=== PATIENT | female | born 1985 | race African-American/Black ===

== ENCOUNTER 2019-04-25 03:38 | Emergency (ER) | payer MEDICAID ==
[~2019-04-25] VITALS: Ht 167.6 cm; Wt 80.0 kg
[2019-04-25] MEDS ORDERED: LORazepam 2 mg/ml vial IM ONE (03:45)
[2019-04-25] MEDS ORDERED: haloperidol lactate 5mg/ml inj IM ONE (03:45)
--- NOTE | 2019-04-25 04:18 | NUR ---
EXPLAINED TO PT ABOUT MEDICATION ORDERS, PT COOPERATIVE TO ATIVAN AND HALDOL WITH NO AGGRESIVE BEHAVIOR. PT GOES THROUGH EPISODES OF A&OX4 AND ABLE TO HAVE FULL CONVERSATIONS, AND THEN THROUGH EPISODES OF A&OX1 TO PERSON AND IS SLURRING SPEECH. PT STATES SHE "DID DRUGS, THEN HAD SEX, THEN WALKED OUT DOOR AND EVEYTHING WAS NOT RIGHT." PT ADMITTED TO DOING METH AND DRINKING BEER TONIGHT. TRIED TO EXPLAIN TO PT THE PLAN OF CARE AND PT THEN STATED "DON'T TELL ME, JUST PUT ME OUT I DON'T WANT TO FEEL IT".
[2019-04-25 04:34] LABS: BASOPHILS # (AUTO) 0.1 X10'3 (0-0.2); BASOPHILS % (AUTO) 0.5 % (0-1); EOSINOPHILS # (AUTO) 0.3 X10'3 (0-0.9); EOSINOPHILS % (AUTO) 3.1 % (0-6); HEMATOCRIT 36.4 % (35.0-45.0); HEMOGLOBIN 11.8 g/dl (12.0-16.0); LYMPHOCYTES # (AUTO) 1.4 X10'3 (1.1-4.8); LYMPHOCYTES % (AUTO) 14.2 % (21-51); MEAN CORPUSCULAR HEMOGLOBIN 26.1 PG (27.0-31.0); MEAN CORPUSCULAR HGB CONC 32.5 g/dL (33.0-36.5); MEAN CORPUSCULAR VOLUME 80.3 FL (78-98); MEAN PLATELET VOLUME 8.2 FL (7.4-10.4); MONOCYTES # (AUTO) 0.7 X10'3 (0-0.9); MONOCYTES % (AUTO) 6.8 % (2-12); NEUTROPHILS # (AUTO) 7.6 X10'3 (1.8-7.7); NEUTROPHILS % (AUTO) 75.4 % (42-75); PLATELET COUNT 276 X10'3 (140-440); RED BLOOD COUNT 4.53 X10'6 (4.20-5.60); RED CELL DISTRIBUTION WIDTH 13.9 % (11.5-14.5); WHITE BLOOD COUNT 10.1 X10'3 (4.5-11.0)
[2019-04-25 04:59] LABS: ALANINE AMINOTRANSFERASE 28 U/L (12-78); ALBUMIN 3.6 G/DL (3.4-5.0); ALBUMIN/GLOBULIN RATIO 0.9 (1.1-1.5); ALKALINE PHOSPHATASE 60 IU/L (46-116); ANION GAP 21 (8-16); ASPARTATE AMINO TRANSFERASE 31 U/L (10-37); BILIRUBIN,TOTAL 0.3 MG/DL (0.1-1.0); BLOOD UREA NITROGEN 10 MG/DL (7-18); BUN/CREATININE RATIO 6.7 (6.6-38.0); CHLORIDE 103 MMOL/L (99-107); ETHANOL < 0.010 GM/DL (0.0-0.010); GLUCOSE 156 MG/DL (70-104); SODIUM 140 MMOL/L (135-145); TOTAL CARBON DIOXIDE 15.8 MMOL/L (24-32); TOTAL PROTEIN 7.7 G/DL (6.4-8.2); eGFR 49 ML/MIN
[2019-04-25 05:01] LABS: ACETAMINOPHEN < 2.0 UG/ML (10-30); POTASSIUM 2.7 MMOL/L (3.5-5.1)
[2019-04-25] MEDS ORDERED: potassium 10mEq/100ml NS w/LIDOcaine (10mg/bag) IV SCH (05:05)
[2019-04-25] MEDS ORDERED: normal saline 1000ML IV soln IVB ONE ×2 (05:05→05:55)
[2019-04-25 05:09] LABS: CLARITY,URINE CLEAR (Clear); COLOR,URINE YELLOW (Yellow); GLUCOSE, URINE NEGATIVE (Neg); KETONES,URINE 15 mg/dl (Neg); LEUKOCYTE ESTERASE ,URINE NEGATIVE (Neg); NITRITES, URINE NEGATIVE (Neg); OCCULT BLOOD,URINE TRACE-INTACT (Neg); PH,URINE 5.5 (4.8-8.0); PROTEIN,URINE NEGATIVE (Neg); URINE HCG POSITIVE (NEG); UROBILINOGEN,URINE 0.2 E.U/dL (0.2-1.0)
[2019-04-25] MEDS: potassium CL 10mEq/100ml bag 100 ML IV SCH ×2 (05:12→06:25)
[2019-04-25] MEDS: potassium Cl 20 mEq SR tablet PO ONE ×2 (05:12→05:19)
[2019-04-25 05:17] LABS: UA COLLECTION TYPE NON-SPECIFIED
[2019-04-25 05:18] LABS: BACTERIA,URINE 1+ /HPF (Neg); MUCUS STRANDS FEW /LPF (Neg); RBC,URINE 0-2 /HPF (0-2); SQUAMOUS EPITHELIAL CELL,UR MANY /LPF (FEW); WBC,URINE NONE SEEN /HPF (0-4)
[2019-04-25 05:22] LABS: URINE AMPHETAMINE SCREEN POSITIVE (Neg); URINE BARBITUATE SCREEN NEGATIVE (Neg); URINE BENZODIAZEPINES SCREEN NEGATIVE (Neg); URINE CANNABINOID SCREEN NEGATIVE (Neg); URINE COCAINE SCREEN NEGATIVE (Neg); URINE METHADONE SCREEN NEGATIVE (Neg); URINE OPIATE SCREEN NEGATIVE (Neg); URINE PHENCYCLIDINE SCREEN NEGATIVE (Neg)
--- NOTE | 2019-04-25 06:17 | NUR ---
PT IS CURRENTLY SLEEPING. VSS.
[2019-04-25 07:56] VITALS: BP 88/45
[2019-04-25 09:07] LABS: ANION GAP 12 (8-16); BLOOD UREA NITROGEN 8 MG/DL (7-18); BUN/CREATININE RATIO 8.5 (6.6-38.0); CALCIUM 7.7 MG/DL (8.5-10.1); CHLORIDE 109 MMOL/L (99-107); CREATININE 0.94 MG/DL (0.40-0.90); GLUCOSE 110 MG/DL (70-104); POTASSIUM 3.8 MMOL/L (3.5-5.1); SODIUM 142 MMOL/L (135-145); TOTAL CARBON DIOXIDE 20.6 MMOL/L (24-32); eGFR 84 ML/MIN
--- NOTE | 2019-04-25 10:12 | NUR ---
called [facility] and pt was accepted as a pt. called a taxi for the patient. pt given proper paperwork for [facility]
== END 2019-04-25 10:14 | disposition home or self-care (01) ==
LOC: ER 03:38
DX: F15.10 Other stimulant abuse, uncomplicated (principal); E86.0 Dehydration; F29 Unspecified psychosis not due to a substance or known physiological condition; F12.90 Cannabis use, unspecified, uncomplicated
CPT/HCPCS: 36415; 80048; 80053; 80305; 80320; 80329; 81001; 81025; 84443; 84702; 85025; 96360; 96361; 96372; 99283; J1630; J2060; J3480; J7030

== ENCOUNTER 2019-05-02 22:46 | Emergency (ER) | payer MEDICAID ==
[~2019-05-02] VITALS: Ht 177.8 cm; Wt 93.6 kg
--- NOTE | 2019-05-02 23:12 | NUR ---
pt awaiting room. give cup of ice water and vasaline for her lips. Pt states "can you give me some medicinie for my headache". I told her when the md sees here they will decided about medication. She states "because i dont want to be admitted...i don't want to take up everyones time".
--- NOTE | 2019-05-03 00:12 | NUR ---
PT REFUSED LAB DRAW. WILL CONTINUE TO MONITOR.
[2019-05-03] MEDS ORDERED: acetaminophen 325mg tablet PO ONE (00:15)
--- NOTE | 2019-05-03 00:46 | NUR ---
ATTEMPTED TO OBTAIN URINE SAMPLE. PT REFUSED AND STATED "I'M JUST TRYING TO SLEEP. I CAN TRY MAYBE LATER. I JUST SHOWERED."
--- NOTE | 2019-05-03 00:59 | NUR ---
WENT TO CHECK ON PT, PT NAKED IN BED WITH SHEET OVER HEAD MUTTERING TO SELF. WHEN ATTEMPTED TO TALK WITH PT SHE STATES, "HELL NO. GO AWAY."
[2019-05-03 01:18] VITALS: BP 107/67
== END 2019-05-03 01:48 | disposition home or self-care (01) ==
LOC: ER 22:46
DX: R51 Headache (principal); F60.0 Paranoid personality disorder; J45.909 Unspecified asthma, uncomplicated; F29 Unspecified psychosis not due to a substance or known physiological condition; F20.9 Schizophrenia, unspecified; F12.90 Cannabis use, unspecified, uncomplicated; F15.90 Other stimulant use, unspecified, uncomplicated; Z98.890 Other specified postprocedural states
CPT/HCPCS: 99283

== ENCOUNTER 2019-05-18 15:05 | Emergency (ER) | payer MEDICAID ==
[~2019-05-18] VITALS: Ht 177.8 cm; Wt 104.5 kg
[2019-05-18 16:20] VITALS: BP 131/79
== END 2019-05-18 18:26 | disposition home or self-care (01) ==
LOC: ER 15:05
DX: F07.81 Postconcussional syndrome (principal); F12.90 Cannabis use, unspecified, uncomplicated; F15.90 Other stimulant use, unspecified, uncomplicated; J45.909 Unspecified asthma, uncomplicated; F20.9 Schizophrenia, unspecified
CPT/HCPCS: 99283

== ENCOUNTER 2019-06-26 18:41 | Emergency (ER) | payer MEDICAID ==
[~2019-06-26] VITALS: Ht 167.6 cm; Wt 90.9 kg
--- NOTE | 2019-06-26 18:55 | NUR ---
Patient requests that I, "feel how hot I am," and points toward her vagina. I told the patient that I would not be doing that and then she looked at me with disgust and told me that, "You're racist!"
[2019-06-26 19:10] LABS: BASOPHILS # (AUTO) 0.1 X10'3 (0-0.2); BASOPHILS % (AUTO) 0.6 % (0-1); EOSINOPHILS # (AUTO) 0.1 X10'3 (0-0.9); EOSINOPHILS % (AUTO) 1.2 % (0-6); HEMATOCRIT 43.8 % (35.0-45.0); HEMOGLOBIN 14.2 g/dl (12.0-16.0); LYMPHOCYTES # (AUTO) 1.3 X10'3 (1.1-4.8); LYMPHOCYTES % (AUTO) 10.9 % (21-51); MEAN CORPUSCULAR HEMOGLOBIN 26.4 PG (27.0-31.0); MEAN CORPUSCULAR HGB CONC 32.3 g/dL (33.0-36.5); MEAN CORPUSCULAR VOLUME 81.6 FL (78-98); MEAN PLATELET VOLUME 8.9 FL (7.4-10.4); MONOCYTES # (AUTO) 0.3 X10'3 (0-0.9); MONOCYTES % (AUTO) 2.5 % (2-12); NEUTROPHILS # (AUTO) 10.3 X10'3 (1.8-7.7); NEUTROPHILS % (AUTO) 84.8 % (42-75); PLATELET COUNT 305 X10'3 (140-440); RED BLOOD COUNT 5.36 X10'6 (4.20-5.60); WHITE BLOOD COUNT 12.1 X10'3 (4.5-11.0)
--- NOTE | 2019-06-26 19:18 | NUR ---
Patient continues to refuse to attempt to urinate stating, "I don't have any urine! [facility]
--- NOTE | 2019-06-26 19:24 | NUR ---
With MARK Carmen straight cath done.
[2019-06-26 19:26] LABS: ALANINE AMINOTRANSFERASE 17 U/L (12-78); ALBUMIN 4.1 G/DL (3.4-5.0); ALKALINE PHOSPHATASE 66 IU/L (46-116); ANION GAP 14 (8-16); ASPARTATE AMINO TRANSFERASE 16 U/L (10-37); BILIRUBIN,TOTAL 0.5 MG/DL (0.1-1.0); BLOOD UREA NITROGEN 10 MG/DL (7-18); BUN/CREATININE RATIO 8.8 (6.6-38.0); CALCIUM 9.5 MG/DL (8.5-10.1); CHLORIDE 106 MMOL/L (99-107); CREATININE 1.13 MG/DL (0.40-0.90); GLUCOSE 101 MG/DL (70-104); POTASSIUM 3.8 MMOL/L (3.5-5.1); SODIUM 143 MMOL/L (135-145); TOTAL PROTEIN 8.1 G/DL (6.4-8.2); eGFR 68 ML/MIN
--- NOTE | 2019-06-26 19:30 | NUR ---
Patient straight cathed by female float nurses. They note no vaginal bleeding, blood clots, or blood in her urine.
[2019-06-26 19:37] LABS: URINE HCG NEGATIVE (NEG)
[2019-06-26 19:38] LABS: CLARITY,URINE CLOUDY (Clear); COLOR,URINE YELLOW (Yellow); GLUCOSE, URINE NEGATIVE (Neg); KETONES,URINE >=80 mg/dl (Neg); LEUKOCYTE ESTERASE ,URINE MODERATE (Neg); NITRITES, URINE NEGATIVE (Neg); OCCULT BLOOD,URINE TRACE-INTACT (Neg); PROTEIN,URINE TRACE mg/dl (Neg)
[2019-06-26 19:39] LABS: UA COLLECTION TYPE CLN CATCH MIDSTREAM
[2019-06-26 19:43] VITALS: BP 113/64
[2019-06-26 19:49] LABS: MUCUS STRANDS MANY /LPF (Neg); SQUAMOUS EPITHELIAL CELL,UR MODERATE /LPF (FEW); TRANSITIONAL EPI CELLS,URINE MODERATE /HPF
[2019-06-26 19:50] LABS: ETHANOL < 0.010 GM/DL (0.0-0.010)
[2019-06-26 19:50] LABS: BACTERIA,URINE 2+ /HPF (Neg); RBC,URINE 0-2 /HPF (0-2); WBC,URINE TNTC /HPF (0-4)
[2019-06-26 20:00] LABS: URINE AMPHETAMINE SCREEN POSITIVE (Neg); URINE BARBITUATE SCREEN NEGATIVE (Neg); URINE BENZODIAZEPINES SCREEN NEGATIVE (Neg); URINE CANNABINOID SCREEN NEGATIVE (Neg); URINE COCAINE SCREEN NEGATIVE (Neg); URINE METHADONE SCREEN NEGATIVE (Neg); URINE OPIATE SCREEN NEGATIVE (Neg); URINE PHENCYCLIDINE SCREEN NEGATIVE (Neg)
[2019-06-26] MEDS ORDERED: LORazepam 1 MG tablet PO ONE (21:10)
--- NOTE | 2019-06-26 21:18 | NUR ---
Phone call to [facility] and spoke to Luis who states [facility] and will have access to get inside.
--- NOTE | 2019-06-29 19:07 | NUR ---
ATTEMPTED TO CALL PT FOR RX FOR MACROBID 100 ,G PO BID X [address] PATEL DUE TO UTI, PT PHONE RINGS BUSY.
== END 2019-06-26 21:37 | disposition home or self-care (01) ==
LOC: ER 18:41
DX: F41.9 Anxiety disorder, unspecified (principal); R10.2 Pelvic and perineal pain; R30.0 Dysuria; J45.909 Unspecified asthma, uncomplicated; F20.9 Schizophrenia, unspecified; F29 Unspecified psychosis not due to a substance or known physiological condition; F12.90 Cannabis use, unspecified, uncomplicated; F15.90 Other stimulant use, unspecified, uncomplicated; F10.99 Alcohol use, unspecified with unspecified alcohol-induced disorder; Z59.0 Homelessness; Z60.2 Problems related to living alone; Y90.9 Presence of alcohol in blood, level not specified
CPT/HCPCS: 36415; 80053; 80305; 80320; 81001; 81025; 85025; 87077; 87088; 87186; 99284

== ENCOUNTER 2021-10-20 19:26 | Emergency (ER) | payer MEDICAID ==
[~2021-10-20] VITALS: Ht 170.2 cm; Wt 116.5 kg
[2021-10-20 21:27] LABS: BASOPHILS # (AUTO) 0.1 X10'3 (0-0.2); BASOPHILS % (AUTO) 0.6 % (0-1); EOSINOPHILS # (AUTO) 0.3 X10'3 (0-0.9); EOSINOPHILS % (AUTO) 2.4 % (0-6); HEMATOCRIT 39.1 % (35.0-45.0); HEMOGLOBIN 12.8 g/dl (12.0-16.0); LYMPHOCYTES # (AUTO) 1.8 X10'3 (1.1-4.8); LYMPHOCYTES % (AUTO) 17.1 % (21-51); MEAN CORPUSCULAR HEMOGLOBIN 25.9 PG (27.0-31.0); MEAN CORPUSCULAR HGB CONC 32.8 g/dL (33.0-36.5); MEAN CORPUSCULAR VOLUME 78.8 FL (78-98); MEAN PLATELET VOLUME 8.4 FL (7.4-10.4); MONOCYTES # (AUTO) 0.6 X10'3 (0-0.9); MONOCYTES % (AUTO) 5.3 % (2-12); NEUTROPHILS # (AUTO) 7.9 X10'3 (1.8-7.7); NEUTROPHILS % (AUTO) 74.6 % (42-75); PLATELET COUNT 223 X10'3 (140-440); RED BLOOD COUNT 4.96 X10'6 (4.20-5.60); RED CELL DISTRIBUTION WIDTH 14.1 % (11.5-14.5); WHITE BLOOD COUNT 10.5 X10'3 (4.5-11.0)
[2021-10-20 21:56] LABS: ALANINE AMINOTRANSFERASE 39 U/L (12-78); ALBUMIN 3.3 G/DL (3.4-5.0); ALBUMIN/GLOBULIN RATIO 0.9 (1.1-1.5); ALKALINE PHOSPHATASE 69 IU/L (46-116); ANION GAP 7 (8-16); ASPARTATE AMINO TRANSFERASE 19 U/L (10-37); BILIRUBIN,TOTAL 0.1 MG/DL (0.1-1.0); BLOOD UREA NITROGEN 8 MG/DL (7-18); BUN/CREATININE RATIO 8.9 (6.6-38.0); CALCIUM 8.8 MG/DL (8.5-10.1); CHLORIDE 101 MMOL/L (99-107); GLUCOSE 90 MG/DL (70-104); POTASSIUM 3.9 MMOL/L (3.5-5.1); SODIUM 135 MMOL/L (135-145); TOTAL CARBON DIOXIDE 26.9 MMOL/L (24-32); eGFR 86 ML/MIN
--- NOTE | 2021-10-20 22:07 | NUR ---
PT ROOMED IN BED 9. ASSUMED CARE OF PT .
--- NOTE | 2021-10-20 22:10 | NUR ---
PT NOTES VISION BLURRINESS TO HER RIGHT IS INTERMITTENT. EQUAL TURKISH RUBBER STRENGTH. NO SPEECH SLUR. PT AMBULATES WITH ERECT AND COORDINATED GAIT. NO FACIAL DROOP.
--- NOTE | 2021-10-20 23:02 | NUR ---
REPORTED EYE ACUITY ASSESSMENT TO DR John RAE TO TELENEUROLOGY HAS BEEN SENT. KENDRA IS IN ROOM.
--- NOTE | 2021-10-20 23:22 | NUR ---
TELENEUROLOGIST HAS SPOKEN WITH PT. PT HAS NO QUESTIONS AT THIS POINT.
--- NOTE | 2021-10-20 23:54 | NUR ---
ROUNDED IN PT'S ROOM. PT HAS NO QUESTIONS OR COMPLAINTS AT PRESENT. NO NEURO CHANGES.
--- NOTE | 2021-10-21 00:19 | NUR ---
UNABLE TO DO MRI TONIGHT. DR Janet MEJIA. PT HAS SIGNED CONSENT FOR LUMBAR PUNCTURE.
--- NOTE | 2021-10-21 01:38 | NUR ---
PT AWAITING FOR LUMBAR PUNCTURE. SO NEXT TO PT IN ROOM. NO CHANGES IN PT.
[2021-10-21] MEDS ORDERED: LIDOcaine 1% 30ml preserv. free vial IJ ONE (01:50)
--- NOTE | 2021-10-21 02:30 | NUR ---
PT SLEEPING ON HER SIDE. WHEN I WALKED IN SHE NOTED A MILD HEADACHE. NO NEW NEUROLOGICAL CHANGES.
[2021-10-21] MEDS ORDERED: acetaminophen 1,000mg/100ml IV 100 ML IV ONE (03:09)
[2021-10-21] MEDS ORDERED: ondansetron/PF 4mg/2ml inj IV ONE (03:10)
--- NOTE | 2021-10-21 03:17 | NUR ---
PT HAD LUMBAR PUNCTURE COMPLETED. PT LYING FLAT. PT HAD EPISODE OF CLEAR EMESIS. DR Gonzales MADE AWARE. HE PUT IN MED ORDERS. PT MEDICATED. PT REPORTS FEELING BETTER. CONTINUES TO LIE FLAT.
[2021-10-21] MEDS ORDERED: CefTRIAXone 250MG inj IV ONE (03:35)
[2021-10-21] MEDS ORDERED: CefTRIAXone 2gm/D5W 50ml BAG 50 ML IV ONE (03:42)
--- NOTE | 2021-10-21 04:02 | NUR ---
LAB CALLED TO REPORT THAT THEY ARE UNABLE TO RUN DIFFERENTIAL ON CSF SAMPLE. DR Gonzales AWARE.
[2021-10-21 04:07] LABS: APPEARANCE,CSF CLEAR; CSF SUPERNATANT COLOR COLORLESS; CSF VOLUME 34 ML; TUBE# COUNTED 1
[2021-10-21 04:08] LABS: APPEARANCE,CSF CLEAR; CSF RBC 0 /CU MM (0); CSF SUPERNATANT COLOR COLORLESS; CSF VOLUME 34 ML; CSF WBC CT 3 /CU MM (0-5); TUBE# COUNTED 4
[2021-10-21 04:09] LABS: CSF RBC 1 /CU MM (0); CSF WBC CT 1 /CU MM (0-5)
[2021-10-21 04:14] LABS: GLUCOSE,CSF 56 MG/DL (40-75); TOTAL PROTEIN,CSF 38 MG/DL (15-45)
--- NOTE | 2021-10-21 04:20 | NUR ---
PT PROVIDED URINE SAMPLE AND IS NOW LYING FLAT IN SUPINE POSITION AGAIN. NO COMPLAINTS OF NAUSEA AT PRESENT.
[2021-10-21] MEDS ORDERED: iohexol 350MG/ML 100ml bottle IV ONE (04:50)
[2021-10-21 05:49] VITALS: BP 108/65
--- NOTE | 2021-10-21 06:30 | NUR ---
UNABLE TO DETECT HEART TONES ON DOPPLER, DR Janet MEJIA. PT NOTES BEING "ALMOST 12 WEEKS" IN GESTATION.
[2021-10-22 11:38] LABS: IMMUNOGLOBULIN G, QN, SERUM 964 mg/dL (586-1602)
[2021-10-23 15:46] LABS: CSF WEST NILE VIRUS, IGG Negative (Negative); CSF WEST NILE VIRUS, IGM Negative (Negative); IMMUNOGLOBULIN G, QN CSF 1.7 mg/dL (0.0-6.7); VDRL, CSF Non Reactive (Non Rea:<1:1)
[2021-10-23 21:21] LABS: CRYPTOCOCCUS ANTIGEN, CSF Negative (Negative)
[2021-10-28 19:11] LABS: LYME IGG P23 AB Absent (.); LYME IGG P28 AB Absent (.); LYME IGG P30 AB Absent (.); LYME IGG P41 AB Absent (.); LYME IGG P45 AB Absent (.); LYME IGG P58 AB Absent (.); LYME IGG P66 AB Absent (.); LYME IGG P93 AB Absent (.); LYME IGG WB INTERP Negative (.); LYME IGM P23 AB Absent (.); LYME IGM P39 AB Absent (.); LYME IGM P41 AB Absent (.); LYME IGM WB INTERP Negative (.)
== END 2021-10-21 08:40 | disposition short-term general hospital (02) ==
LOC: ER 19:26
DX: O26.891 Other specified pregnancy related conditions, first trimester (principal); Z20.822 Contact with and (suspected) exposure to COVID-19; G93.2 Benign intracranial hypertension; R51.9 Headache, unspecified; H57.89 Other specified disorders of eye and adnexa; H53.8 Other visual disturbances; O99.511 Diseases of the respiratory system complicating pregnancy, first trimester; J45.909 Unspecified asthma, uncomplicated; O99.321 Drug use complicating pregnancy, first trimester; F12.90 Cannabis use, unspecified, uncomplicated; F15.90 Other stimulant use, unspecified, uncomplicated; Z87.891 Personal history of nicotine dependence; Z72.89 Other problems related to lifestyle; Z60.2 Problems related to living alone; Z3A.12 12 weeks gestation of pregnancy
CPT/HCPCS: 36415; 62270; 70450; 70496; 70498; 80053; 82040; 82042; 82784; 82945; 83873; 83916; 84157; 85025; 86592; 86617; 86788; 86789; 87015; 87070; 87210; 87529; 87635; 87899; 89051; 96365; 96375; 99291; C9803; J0131; J0696; J2405; Q9967; 96368; 96374

== ENCOUNTER 2022-09-14 17:57 | Emergency (ER) | payer MEDICAID ==
[~2022-09-14] VITALS: Ht 170.2 cm; Wt 109.1 kg
[2022-09-14 18:04] VITALS: BP 141/74
[2022-09-14] MEDS ORDERED: HYDROcodone/acetaminophen 10/325mg tab PO ONE (19:25)
[2022-09-14] MEDS ORDERED: HYDR-3972 PO (19:40)
== END 2022-09-14 19:55 | disposition home or self-care (01) ==
LOC: ER 17:58
DX: S93.402A Sprain of unspecified ligament of left ankle, initial encounter (principal); S93.602A Unspecified sprain of left foot, initial encounter; M25.572 Pain in left ankle and joints of left foot; J45.909 Unspecified asthma, uncomplicated; F20.9 Schizophrenia, unspecified; F12.90 Cannabis use, unspecified, uncomplicated; F15.90 Other stimulant use, unspecified, uncomplicated; Z72.89 Other problems related to lifestyle; Z60.2 Problems related to living alone; Z88.0 Allergy status to penicillin; Z88.8 Allergy status to other drugs, medicaments and biological substances; Z79.899 Other long term (current) drug therapy; S99.912A Unspecified injury of left ankle, initial encounter; X58.XXXA Exposure to other specified factors, initial encounter; Y93.9 Activity, unspecified; Y92.89 Other specified places as the place of occurrence of the external cause; Y99.8 Other external cause status
CPT/HCPCS: 73610; 73630; 99284; A6449

== ENCOUNTER 2023-09-14 09:19 | Emergency (ER) | payer MEDICAID ==
[~2023-09-14] VITALS: Ht 167.6 cm; Wt 102.3 kg
[2023-09-14] MEDS ORDERED: HYDROcodone/acetaminophen 5mg/325mg tablet PO ONE ×2 (09:40→19:40)
[2023-09-14] MEDS ORDERED: diphenhydrAMINE 50 mg/ml inj IM ONE (09:40)
[2023-09-14] MEDS ORDERED: metoclopramide 5 mg/ml inj IV ONE ×3 (09:40→19:05)
[2023-09-14 10:09] LABS: BASOPHILS # (AUTO) 0.1 X10'3 (0-0.2); BASOPHILS % (AUTO) 1.3 % (0-1); EOSINOPHILS # (AUTO) 0.4 X10'3 (0-0.9); HEMATOCRIT 32.5 % (35.0-45.0); LYMPHOCYTES # (AUTO) 1.8 X10'3 (1.1-4.8); LYMPHOCYTES % (AUTO) 23.9 % (21-51); MEAN CORPUSCULAR HEMOGLOBIN 22.8 PG (27.0-31.0); MEAN CORPUSCULAR HGB CONC 30.7 g/dL (33.0-36.5); MEAN CORPUSCULAR VOLUME 74.3 FL (78-98); MEAN PLATELET VOLUME 8.7 FL (7.4-10.4); MONOCYTES # (AUTO) 0.3 X10'3 (0-0.9); MONOCYTES % (AUTO) 3.7 % (2-12); NEUTROPHILS # (AUTO) 4.9 X10'3 (1.8-7.7); NEUTROPHILS % (AUTO) 65.1 % (42-75); PLATELET COUNT 280 X10'3 (140-440); RED BLOOD COUNT 4.38 X10'6 (4.20-5.60); RED CELL DISTRIBUTION WIDTH 15.8 % (11.5-14.5); WHITE BLOOD COUNT 7.5 X10'3 (4.5-11.0)
[2023-09-14] MEDS ORDERED: diphenhydrAMINE 50 mg/ml inj IV ONE (10:40)
[2023-09-14 10:49] LABS: ALANINE AMINOTRANSFERASE 16 U/L (12-78); ALBUMIN 3.2 G/DL (3.4-5.0); ALBUMIN/GLOBULIN RATIO 0.8 (1.1-1.5); ALKALINE PHOSPHATASE 47 IU/L (46-116); ANION GAP 8 (8-16); ASPARTATE AMINO TRANSFERASE 13 U/L (10-37); BILIRUBIN,TOTAL 0.1 MG/DL (0.1-1.0); BLOOD UREA NITROGEN 10 MG/DL (7-18); BUN/CREATININE RATIO 9.1 (10.0-20.0); CALCIUM 8.3 MG/DL (8.5-10.1); CHLORIDE 107 MMOL/L (99-107); POTASSIUM 3.8 MMOL/L (3.5-5.1); SODIUM 139 MMOL/L (135-145); TOTAL CARBON DIOXIDE 23.6 MMOL/L (24-32); TOTAL PROTEIN 7.1 G/DL (6.4-8.2); eCRCL 66 ML/MIN; eGFR 68 ML/MIN
[2023-09-14 10:51] LABS: GLUCOSE 109 MG/DL (70-104)
[2023-09-14 12:01] LABS: HCG SERUM QL NEGATIVE
[2023-09-14] MEDS ORDERED: BUPIVAcaine 0.25% w/Epi /PF 30ml vial SQ ONE (12:20)
[2023-09-14] MEDS ORDERED: BUPIVAcaine 0.5% W/EPI /PF 30ml vial SQ ONE (13:25)
[2023-09-14] MEDS ORDERED: acetaminophen 325mg tablet PO ONE (14:05)
[2023-09-14] MEDS ORDERED: magnesium 2GM in 50ml NS 50 ML IV ONE (14:05)
[2023-09-14 15:00] VITALS: TEMP 97.6
[2023-09-14 17:02] LABS: GLUCOSE,CSF 63 MG/DL (40-75); TOTAL PROTEIN,CSF 55 MG/DL (15-45)
[2023-09-14 17:13] LABS: APPEARANCE,CSF CLEAR; CSF SUPERNATANT COLOR COLORLESS; CSF VOLUME 25 ML; TUBE# COUNTED 1
[2023-09-14 17:14] LABS: APPEARANCE,CSF CLEAR; CSF RBC 59 /CU MM (0); CSF RBC 64 /CU MM (0); CSF SUPERNATANT COLOR COLORLESS; CSF VOLUME 25 ML; CSF WBC CT 0 /CU MM (0-5); CSF WBC CT 1 /CU MM (0-5); TUBE# COUNTED 4
[2023-09-14 18:04] LABS: BILIRUBIN,URINE NEGATIVE (Neg); CLARITY,URINE CLOUDY (Clear); COLOR,URINE STRAW (Yellow); GLUCOSE, URINE 100 mg/dl (Neg); KETONES,URINE NEGATIVE (Neg); LEUKOCYTE ESTERASE ,URINE MODERATE (Neg); NITRITES, URINE POSITIVE (Neg); OCCULT BLOOD,URINE LARGE (Neg); PH,URINE 5.5 (4.8-8.0); PROTEIN,URINE NEGATIVE (Neg); UROBILINOGEN,URINE 0.2 E.U/dL (0.2-1.0)
[2023-09-14 18:09] LABS: UA COLLECTION TYPE NON-SPECIFIED
[2023-09-14 18:10] LABS: SQUAMOUS EPITHELIAL CELL,UR MANY /LPF (FEW)
[2023-09-14 18:11] LABS: WBC,URINE 30-50 /HPF (0-4)
[2023-09-14 18:12] LABS: BACTERIA,URINE 3+ /HPF (Neg)
[2023-09-14 19:00] VITALS: BP 108/53; PULSE 76; O2SAT 98
[2023-09-14] MEDS ORDERED: ketorolac trometh. 30mg/ml inj. IV ONE (19:05)
[2023-09-14] MEDS ORDERED: ciprofloxacin 250mg tablet PO ONE (19:40)
[2023-09-14] MEDS ORDERED: CIPR-260 PO (19:46)
[2023-09-14] MEDS ORDERED: HYDR-3965 PO (19:46)
[2023-09-14 20:00] VITALS: RESP 18
[2023-09-19 13:41] LABS: CSF WEST NILE VIRUS, IGG Negative (Negative); CSF WEST NILE VIRUS, IGM Negative (Negative); VDRL, CSF Non Reactive (Non Rea:<1:1)
[2023-09-20 20:13] LABS: CRYPTOCOCCUS AG TITER, CSF Not Indicated (.); CRYPTOCOCCUS ANTIGEN, CSF Negative (Negative)
[2023-09-22 15:15] LABS: LYME IGG P18 AB Absent (.); LYME IGG P23 AB Absent (.); LYME IGG P28 AB Absent (.); LYME IGG P30 AB Absent (.); LYME IGG P39 AB Absent (.); LYME IGG P41 AB Absent (.); LYME IGG P45 AB Absent (.); LYME IGG P58 AB Absent (.); LYME IGG P66 AB Absent (.); LYME IGG P93 AB Absent (.); LYME IGG WB INTERP Negative (.); LYME IGM P23 AB Absent (.); LYME IGM P39 AB Absent (.); LYME IGM P41 AB Absent (.); LYME IGM WB INTERP Negative (.)
== END 2023-09-14 20:19 | disposition home or self-care (01) ==
LOC: ER 09:19
DX: N39.0 Urinary tract infection, site not specified (principal); R51.9 Headache, unspecified; M54.2 Cervicalgia; M54.9 Dorsalgia, unspecified
CPT/HCPCS: 36415; 62270; 70450; 71045; 80053; 81001; 82945; 83605; 84145; 84157; 84703; 85025; 86592; 86617; 86788; 86789; 87015; 87040; 87070; 87899; 89051; 96365; 96375; 96376; 99285; J1200; J1885; J2765; J3475; J7030

== ENCOUNTER 2024-04-11 09:05 | Outpatient (CLI) | payer MEDICAID ==
[~2024-04-11 09:05] MED LIST: CIPR-260 PO
== END 2024-04-11 23:59 | disposition home or self-care (01) ==
LOC: RAD 09:05
PROVIDERS: ATTEND Obstetrics & Gynecology
DX: O09.522 Supervision of elderly multigravida, second trimester (principal); Z3A.14 14 weeks gestation of pregnancy
CPT/HCPCS: 76815

== ENCOUNTER 2025-07-08 01:37 | Emergency (ER) | payer MEDICAID ==
[~2025-07-08] VITALS: Ht 170.2 cm; Wt 101.5 kg
--- NOTE | 2025-07-08 02:10 | Physician Documentation ---
History of Present Illness Chief Complaint: Abdominal Pain Stated Complaint: FLANK PAIN Time Seen by MD: 02:10 Primary Medical Doctor: NONE HPI 39-year-old female presenting with left lower abdominal pain and urinary symptoms She tells me that over the past 3 days she has been having some burning and discomfort with urination. She also reports having chills and mild nausea. She woke up from sleep tonight, with pain in her left lower abdomen. She states the pain radiates through to her back. It is constant and very uncomfortable. She has been taking ibuprofen and Tylenol without much relief. No respiratory symptoms. No vomiting. No diarrhea or constipation. No vaginal bleeding or discharge. She does not think she is . She has had her gallbladder removed but no other abdominal surgeries, she still has her ovaries. She has sexually active with her . Medication Reconciliation Allergies: Coded Allergies: Penicillins (Verified Allergy, Unknown, 07/08/25) nitrofurantoin (Verified Allergy, Unknown, 07/08/25) Scheduled Ciprofloxacin HCl (Cipro), 1 TAB PO Q12H Phenazopyridine HCl (Pyridium), 1 TAB PO Q8H Sulfamethoxazole/Trimethoprim (Bactrim Ds Tablet), 1 TAB PO Q12H Scheduled PRN ONDANSETRON ODT 4mg tablet (Ondansetron Odt), 1 TAB PO Q6H PRN PRN for nausea/vomiting Past Medical History Past Medical History: *STEAM TABLE WORKER*, Asthma, Psychosis, Schizophrenia Past Surgical History: no surgical history Alcohol Use: Occasionally Drug Use: marijuana, methamphetamine Lives with: Alone Lives In: Home Occupation: employed Review of Systems Constitutional: Reports: chills, fever Gastrointestinal: Reports: abdominal pain, nausea; Denies: vomiting, diarrhea Physical Exam Vital Signs: Temperature: 98.2, Source: Oral, Heart Rate: 88, Respiratory Rate: 18, BP: 123/72, Pulse Oximetry: 98, Weight: 101.500 Oxygen Flow Rate: 0 Physical Exam General: This is a pleasant and mildly uncomfortable appearing young woman HEENT: Atraumatic, oropharynx is moist Heart: Regular rate and rhythm, normal-appearing peripheral perfusion Lungs: normal work of breathing, normal oxygen saturation on room air Abdomen: Soft, nondistended, mild tenderness to palpation in the left lower pelvic region, otherwise nontender, no rebound or guarding Back: No reproducible tenderness on palpation of the muscles or bones of the back Neuro: Alert and oriented Psychiatric: Appears tired and uncomfortable but is cooperative with exam Progress Results/Orders Results/Orders Orders - VADIM BARRERA MD Urinalysis, Cult If Indicated (07/08/25 02:01) Hcg, Ur Ql (07/08/25 02:01) Vital Signs 07/08/25 01:48 Temp 98.2 Pulse 88 Resp 18 B/P (MAP) 123/72 Pulse Ox 98 O2 Flow Rate 0 Medical Decision Making Additional information obtaine: N/A Findings na Differential Dx:Considerations: Appendicitis, Ovarian cyst/torsion, PID, Urinary obstruction, Urinary tract infection, Urolithiasis Additional Comments The patient presents with left lower abdominal pain, after several days of dysuria and chills. On exam she does not have a surgical abdomen. An IV was placed and she was given Toradol and Zofran as well as IV fluids. Urinalysis returns with clear infection. Labs with a leukocytosis, but unremarkable kidney function. Overall this appears consistent with pyelonephritis. She was given IV ceftriaxone. She will be discharged on antibiotics. Return precautions given. Departure Time of Disposition: 03:37 Disposition: 01 HOME / SELF CARE / HOMELESS Impression: Primary Impression: Pyelonephritis Condition: Improved Discharge Instructions: Pyelonephritis, Adult Referrals: NO PRIMARY CARE PROVIDER (PCP) Prescriptions Phenazopyridine HCl (Pyridium) 200 Mg Tablet 1 TAB PO Q8H for urinary discomfort for 2 Days, #6 TAB 0 Refills Prov: VADIM BARRERA MD 07/08/25 ONDANSETRON ODT 4mg tablet (ONDANSETRON ODT) 4 Mg Tab.rapdis 1 TAB PO Q6H PRN PRN for nausea/vomiting for 4 Days, #16 TAB 0 Refills Prov: VADIM BARRERA MD 07/08/25 Sulfamethoxazole/Trimethoprim (Bactrim Ds Tablet) 800 Mg-160 Mg Tablet 1 TAB PO Q12H for 7 Days, #14 TAB Prov: VADIM BARRERA MD 07/08/25 Education Educated: Patient Educated regarding: diagnosis, treatment, need for follow up Signature Scribe Signature: na Attestation: VADIM Aguilar MD Jul 08, 2025 02:10
[2025-07-08 02:28] LABS: URINE HCG NEGATIVE (NEG)
[2025-07-08 02:32] LABS: LEUKOCYTE ESTERASE ,URINE MODERATE (Neg); NITRITES, URINE NEGATIVE (Neg); OCCULT BLOOD,URINE MODERATE (Neg)
[2025-07-08 02:37] LABS: UA COLLECTION TYPE CLN CATCH MIDSTREAM
[2025-07-08 02:40] LABS: SQUAMOUS EPITHELIAL CELL,UR NONE SEEN /LPF (FEW)
[2025-07-08] MEDS: ketorolac trometh 15mg/ml vial 15 MG/ML ML IV ONE (02:46)
[2025-07-08] MEDS: ondansetron/PF 4mg/2ml inj IV ONE (02:46)
[2025-07-08] MEDS: normal saline 500ml IV soln 500 ML IV ONE (02:48)
[2025-07-08 02:58] LABS: MEAN PLATELET VOLUME 9.0 FL (7.4-10.4); RED CELL DISTRIBUTION WIDTH 14.1 % (11.5-14.5)
[2025-07-08 03:14] LABS: CREATININE 1.18 MG/DL (0.40-0.90); TOTAL CARBON DIOXIDE 27.2 MMOL/L (24-32); eCRCL 63 ML/MIN; eGFR 62 ML/MIN
[2025-07-08] MEDS: CefTRIAXone/D5W-Rocephin 1gm 50 ML IV ONE (03:15)
[2025-07-08] MEDS ORDERED: SULF1TAB49 PO (03:42)
[2025-07-08] MEDS ORDERED: ONDA-243 PO (03:43)
[2025-07-08] MEDS ORDERED: PHEN-716 PO (03:46)
[2025-07-08] MEDS ORDERED: phenazopyridine 100mg tablet PO ONE (03:50)
[2025-07-08 04:09] VITALS: BP 100/55; PULSE 82; RESP 16; TEMP 98; O2SAT 96
== END 2025-07-08 04:21 | disposition home or self-care (01) ==
LOC: ER 01:38
DX: N12 Tubulo-interstitial nephritis, not specified as acute or chronic (principal); F20.9 Schizophrenia, unspecified; J45.909 Unspecified asthma, uncomplicated; F12.90 Cannabis use, unspecified, uncomplicated; F15.90 Other stimulant use, unspecified, uncomplicated; Z88.0 Allergy status to penicillin; Z88.1 Allergy status to other antibiotic agents
CPT/HCPCS: 36415; 80053; 81001; 81025; 85025; 87088; 96374; 96375; 99284; J0696; J1885; J2405; J7030; J7040